=== PATIENT | female | born 1995 | race Hispanic/Latino ===

== ENCOUNTER 2017-08-21 08:40 | Emergency (ER) | payer OTHER ==
[~2017-08-21] VITALS: Ht 163.8 cm; Wt 86.4 kg
[2017-08-21] MEDS ORDERED: NAPR500T3 PO (08:54)
[2017-08-21] MEDS ORDERED: NORCO, ANEXSIA 5/325MG TABLET (HYDROcodone/ACETAMINOPHEN) PO ONE (10:30)
[2017-08-21] MEDS ORDERED: ONDANSETRON 4 MG ORAL DISINTEGRATING TAB (S0181) PO ONE (10:30)
[2017-08-21 10:54] LABS: CONTROL LINE UCG INT CTR LINE PRESENT
[2017-08-21 11:32] LABS: BASO % 0.4 % (0.0-1.0); EOS # 0.1 10^3/uL (0.0-0.50); EOS % 1.3 % (0.0-3.0); IMMATURE GRANULOCYTE % 0.3 % (0-0); LYMPH # 2.3 10^3/uL (1.5-6.5); LYMPH % 22.1 % (24.0-44.0); MEAN CORPUSCULAR HEMOGLOBIN 31.3 pg (27.0-33.0); MEAN CORPUSCULAR HGB CONC 33.8 g/dl (32.0-36.5); MEAN CORPUSCULAR VOLUME 92.7 fl (80.0-96.0); MONO # 0.6 10^3/uL (0.0-0.8); MONO % 5.7 % (0.0-5.0); NEUTROPHILS # 7.4 10^3/uL (1.8-7.7); NEUTROPHILS % 70.2 % (36.0-66.0); PLATELET COUNT, AUTOMATED 371 10^3/uL (150-450); RED CELL DISTRIBUTION WIDTH 12.8 % (11.5-14.5); WHITE BLOOD COUNT 10.5 10^3/uL (4.0-10.0)
[2017-08-21] MEDS ORDERED: NITROFURANTOIN (MACROBID) 100 MG CAP PO ONE (12:30)
[2017-08-21] MEDS ORDERED: MACR100C43 PO (12:32)
[2017-08-21 12:39] VITALS: BP 120/74
--- NOTE | 2017-08-21 15:55 | REP ---
Clinical: Pelvic pain and cramping with positive test. Technique: Transabdominal and transvaginal first trimester obstetrical ultrasound with color Doppler evaluation. Findings: Heterogeneous anteverted uterus measures 9.0 x 4.4 x 5.3 cm. Endometrial complex is thickened to 18 mm, but without intrauterine identified. Maternal ovaries are normal in appearance and vascularity without torsion. Right ovary measures 4.1 x 2.4 x 4.0 cm and includes 2.1 cm corpus luteal cyst; RI 0.50. Left ovary measures 2.8 x 1.8 x 3.2 cm; RI 0.51. No pelvic fluid or adnexal mass lesion. Impression: No intrauterine identified. Differential diagnosis includes early , missed spontaneous , and less likely ectopic cannot be excluded. Follow-up HCG levels and ultrasound may be warranted. Signed by Paramjit Knox MD 08/21/2017 11:27 A
== END 2017-08-21 12:40 | disposition home or self-care (01) ==
LOC: M ED 08:40
DX: O23.01 Infections of kidney in pregnancy, first trimester (principal); Z3A.00 Weeks of gestation of pregnancy not specified; Z87.42 Personal history of other diseases of the female genital tract

== ENCOUNTER → 2017-08-23 | Outpatient (CLI) | payer OTHER ==
[~2017-08-23] MED LIST: MACR100C43 PO; NAPR500T3 PO; TYLE325T5 PO
== END ==
LOC: M LAB 09:19
PROVIDERS: ATTEND Physician Assistant
DX: Z34.80 Encounter for supervision of other normal pregnancy, unspecified trimester (principal)

== ENCOUNTER 2017-08-30 16:12 | Emergency (ER) | payer OTHER ==
[~2017-08-30] VITALS: Ht 162.6 cm; Wt 86.4 kg
[~2017-08-30 16:12] MED LIST changes: -TYLE325T5 PO
[2017-08-30] MEDS ORDERED: TYLE325T5 PO (16:22)
[2017-08-30 17:58] LABS: BASO % 0.3 % (0.0-1.0); EOS # 0.1 10^3/uL (0.0-0.50); IMMATURE GRANULOCYTE % 0.3 % (0-0); LYMPH # 2.1 10^3/uL (1.5-6.5); MEAN CORPUSCULAR HEMOGLOBIN 31.7 pg (27.0-33.0); MEAN CORPUSCULAR HGB CONC 34.3 g/dl (32.0-36.5); MEAN CORPUSCULAR VOLUME 92.5 fl (80.0-96.0); MONO # 0.6 10^3/uL (0.0-0.8); MONO % 6.3 % (0.0-5.0); NEUTROPHILS # 7.1 10^3/uL (1.8-7.7); NEUTROPHILS % 71.1 % (36.0-66.0); PLATELET COUNT, AUTOMATED 440 10^3/uL (150-450); RED CELL DISTRIBUTION WIDTH 13.1 % (11.5-14.5)
[2017-08-30 18:02] LABS: SPECIFIC GRAVITY UR AUTO RFX 1.006 (1.002-1.035); SQUAM EPITHELIAL CELL UR AURFX 1 /HPF (0-6)
[2017-08-30 18:36] LABS: ALBUMIN 4.3 GM/DL (3.2-5.2); ALBUMIN/GLOBULIN RATIO 1.16 (1.00-1.93); ALKALINE PHOSPHATASE 80 U/L (45-117); ALT/SGPT 24 U/L (12-78); ANION GAP 7 MEQ/L (8-16); AST/SGOT 15 U/L (7-37); BILIRUBIN,TOTAL 0.3 MG/DL (0.2-1.0); BLOOD UREA NITROGEN 6 MG/DL (7-18); CALCIUM LEVEL 8.9 MG/DL (8.5-10.1); CARBON DIOXIDE LEVEL 26 MEQ/L (21-32); CHLORIDE LEVEL 106 MEQ/L (98-107); CREATININE FOR GFR 0.64 MG/DL (0.55-1.02); GLOMERULAR FILTRATION RATE > 60.0 (>60); GLUCOSE, FASTING 91 MG/DL (70-105); HCG, SERUM QUANTITATIVE 1920 MIU/ML; POTASSIUM SERUM 3.8 MEQ/L (3.5-5.1); SODIUM LEVEL 139 MEQ/L (136-145)
--- NOTE | 2017-08-30 19:50 | REPUSA ---
CLINICAL HISTORY: . Left-sided pain. TECHNIQUE: Pelvic ultrasound, transabdominal and endovaginal. Endovaginal exam was performed for more complete evaluation of the endometrial contents. COMPARISON: No study for comparison is available at the time of interpretation. Uterus: 8.4 x 4.9 x 4.8 cm. Normal without masses. Endometrial stripe: Early gestational sac with mean sac diameter 5.6 mm without yolk sac or cahim e. Estimated gestational age 5 weeks, 2 days. Left ovary: 3.3 x 2.2 x 1.9 cm, and contains a thickwalled cyst with peripheral blood flow measuring 1.5 x 1.2 x 1.4 cm. Normal ovarian vascular flow. Right ovary: 2.8 x 2.7 x 2.6 cm, and contains a thickwalled cyst measuring 1.9 x 1.9 x 1.6 cm. Normal ovarian vascular flow. Pelvic fluid: None. IMPRESSION: Intrauterine gestational sac at 5 weeks, 2 days, without yolk sac or pole. Recommended close cl inical correlation with serial beta hCG's to establish viability, and follow-up ultrasound if beta hC G's are increasing. Due to the presence of bilateral ovarian cysts, ectopic cannot be excluded. Recommend repea t ultrasound if patient's symptoms persist or worsen.
[2017-08-30 20:09] VITALS: BP 130/86
--- NOTE | 2017-09-04 13:05 | ED PDOC ---
Post-Departure Follow-Up ft fitz evans faxed formal report of ob us for fu Cayden Carmona MD Sep 04, 2017 13:05
== END 2017-08-30 20:10 | disposition home or self-care (01) ==
LOC: M ED 17:17
DX: O26.891 Other specified pregnancy related conditions, first trimester (principal); R10.9 Unspecified abdominal pain; O34.80 Maternal care for other abnormalities of pelvic organs, unspecified trimester; N83.201 Unspecified ovarian cyst, right side; N83.202 Unspecified ovarian cyst, left side; Z3A.01 Less than 8 weeks gestation of pregnancy; Z79.2 Long term (current) use of antibiotics

== ENCOUNTER 2017-09-05 18:10 | Emergency (ER) | payer OTHER ==
[~2017-09-05] VITALS: Ht 165.1 cm; Wt 86.4 kg
[~2017-09-05 18:10] MED LIST changes: +TYLE325T5 PO
[2017-09-05 19:58] LABS: BASO # 0.1 10^3/uL (0.0-0.2); BASO % 0.4 % (0.0-1.0); EOS # 0.2 10^3/uL (0.0-0.50); EOS % 1.3 % (0.0-3.0); IMMATURE GRANULOCYTE % 0.2 % (0-0); LYMPH # 2.9 10^3/uL (1.5-6.5); LYMPH % 21.1 % (24.0-44.0); MEAN CORPUSCULAR HEMOGLOBIN 31.5 pg (27.0-33.0); MEAN CORPUSCULAR HGB CONC 33.8 g/dl (32.0-36.5); MEAN CORPUSCULAR VOLUME 93.3 fl (80.0-96.0); MONO # 0.8 10^3/uL (0.0-0.8); MONO % 6.2 % (0.0-5.0); NEUTROPHILS # 9.6 10^3/uL (1.8-7.7); NEUTROPHILS % 70.8 % (36.0-66.0); PLATELET COUNT, AUTOMATED 425 10^3/uL (150-450); RED CELL DISTRIBUTION WIDTH 13.2 % (11.5-14.5); WHITE BLOOD COUNT 13.5 10^3/uL (4.0-10.0)
[2017-09-05 20:07] LABS: MUCUS, URINE RFX SMALL (NEGATIVE); SQUAM EPITHELIAL CELL UR AURFX 2 /HPF (0-6)
[2017-09-05 20:42] LABS: ANION GAP 8 MEQ/L (8-16); BLOOD UREA NITROGEN 5 MG/DL (7-18); CALCIUM LEVEL 9.2 MG/DL (8.5-10.1); CARBON DIOXIDE LEVEL 26 MEQ/L (21-32); CHLORIDE LEVEL 106 MEQ/L (98-107); CREATININE FOR GFR 0.59 MG/DL (0.55-1.02); GLOMERULAR FILTRATION RATE > 60.0 (>60); GLUCOSE, FASTING 85 MG/DL (70-105); HCG, SERUM QUANTITATIVE 9867 MIU/ML; SODIUM LEVEL 140 MEQ/L (136-145)
--- NOTE | 2017-09-05 21:30 | REPUSA ---
Clinical history: vaginal bleeding. Findings: Real-time transabdominal and transvaginal ultrasound images of the pelvis were obtained. Th ere is a single live intrauterine . [place] rump length measures 0.3 cm. heart rate christian ures 101 bpm. There is no evidence of a subchorionic hemorrhage. An anteverted uterus is noted, measu ring 8.4 x 5.5 x 6.3 cm. The uterus demonstrates normal echotexture and echogenicity. The endometrial stripe measures 3 mm and is within normal limits. The right ovary measures 2.8 x 3.8 x 2.4 cm. There is a complex right ovarian cyst measuring 1.9 x 1.7 x 0.8 cm. The left ovary measures 3.4 x 3.6 x 2. 9 cm. No adnexal masses are seen. Color Doppler flow is seen within both ovaries. There is no evidenc e of free fluid. Impression: 1. Single live intrauterine measuring 6 weeks, with estimated due date of 05/01/2018. 2. Right ovarian corpus luteum cyst.
[2017-09-05] MEDS ORDERED: KEFL500C17 PO ×2 (21:50→22:02)
[2017-09-05] MEDS ORDERED: CEPHALEXIN 500 MG CAP PO ONE (22:00)
[2017-09-05 22:04] VITALS: BP 116/51
== END 2017-09-05 22:06 | disposition home or self-care (01) ==
LOC: M ED 18:10
DX: O23.11 Infections of bladder in pregnancy, first trimester (principal); O26.851 Spotting complicating pregnancy, first trimester; O26.891 Other specified pregnancy related conditions, first trimester; Z3A.01 Less than 8 weeks gestation of pregnancy

== ENCOUNTER 2017-10-17 20:24 | Emergency (ER) | payer OTHER ==
[2017-10-17] MEDS: METOCLOPRAMIDE INJ 10MG/2ML VIAL (J2765) IV (21:00)
[2017-10-17] MEDS: NS 1,000 ML IV ×2 (21:00→22:15)
[2017-10-17 22:05] LABS: BASO % 0.2 % (0.0-1.0); EOS # 0.1 10^3/uL (0.0-0.50); EOS % 0.9 % (0.0-3.0); HEMATOCRIT 37.8 % (36.0-47.0); IMMATURE GRANULOCYTE # 0.1 10^3/uL (0-0); IMMATURE GRANULOCYTE % 0.5 % (0-0); LYMPH % 16.3 % (24.0-44.0); MEAN CORPUSCULAR HEMOGLOBIN 31.3 pg (27.0-33.0); MEAN CORPUSCULAR HGB CONC 34.4 g/dl (32.0-36.5); MEAN CORPUSCULAR VOLUME 91.1 fl (80.0-96.0); MONO # 0.7 10^3/uL (0.0-0.8); NEUTROPHILS # 9.4 10^3/uL (1.8-7.7); NEUTROPHILS % 76.1 % (36.0-66.0); PLATELET COUNT, AUTOMATED 329 10^3/uL (150-450); RED BLOOD COUNT 4.15 10^6/uL (4.00-5.40); RED CELL DISTRIBUTION WIDTH 12.7 % (11.5-14.5); WHITE BLOOD COUNT 12.3 10^3/uL (4.0-10.0)
[2017-10-17] MEDS: diphenhydrAMINE INJ 50MG/ML VIAL (J1200) IV (22:12)
[2017-10-17 22:25] LABS: ANION GAP 10 MEQ/L (8-16); BLOOD UREA NITROGEN 4 MG/DL (7-18); CARBON DIOXIDE LEVEL 25 MEQ/L (21-32); CHLORIDE LEVEL 105 MEQ/L (98-107); CREATININE FOR GFR 0.52 MG/DL (0.55-1.02); GLOMERULAR FILTRATION RATE > 60.0 (>60); GLUCOSE, FASTING 81 MG/DL (70-100); HCG, SERUM QUANTITATIVE 59544 MIU/ML; POTASSIUM SERUM 3.8 MEQ/L (3.5-5.1); SODIUM LEVEL 140 MEQ/L (136-145)
[2017-10-17 23:41] LABS: KETONE, URINE AUTO RFX 2+ mg/dL (NEGATIVE); LEUKOCYTE ESTERASE UR AUTO RFX NEGATIVE (NEGATIVE); MUCUS, URINE RFX SMALL (NEGATIVE); NITRITE, URINE AUTO RFX NEGATIVE (NEGATIVE); RBC, URINE AUTO RFX 3 /HPF (0-3); SPECIFIC GRAVITY UR AUTO RFX 1.019 (1.002-1.035); SQUAM EPITHELIAL CELL UR AURFX 1 /HPF (0-6); WBC, URINE AUTO RFX 3 /HPF (0-3)
== END 2017-10-17 23:56 | disposition home or self-care (01) ==
LOC: M ED 20:24
DX: O21.0 Mild hyperemesis gravidarum (principal); O26.891 Other specified pregnancy related conditions, first trimester; N80.9 Endometriosis, unspecified; Z3A.12 12 weeks gestation of pregnancy
CPT/HCPCS: J1200

== ENCOUNTER 2017-12-06 22:14 | Emergency (ER) | payer OTHER | END 2017-12-07 01:30 | disposition admitted as inpatient to this hospital (09) | LOC: M ED 22:14 | DX: O99.89 Other specified diseases and conditions complicating pregnancy, childbirth and the puerperium (principal); R51 Headache; Z79.899 Other long term (current) drug therapy | CPT/HCPCS: 99281 ==

== ENCOUNTER 2017-12-07 01:25 | Outpatient (CLI) | payer OTHER ==
[2017-12-07] MEDS: FIORICET TAB PO ×2 (02:15)
[2017-12-07] MEDS ORDERED: ACETAMINOPHEN 500 MG TAB PO ×2 (02:15)
[2017-12-07] MEDS ORDERED: LR 1,000 ML IV ×4 (02:15)
[2017-12-07] MEDS ORDERED: METOCLOPRAMIDE INJ 10MG/2ML VIAL (J2765) IV ×2 (02:15)
== END 2017-12-07 04:22 | disposition home or self-care (01) ==
LOC: M LDO 01:25
DX: G43.909 Migraine, unspecified, not intractable, without status migrainosus (principal); R10.2 Pelvic and perineal pain; Z3A.20 20 weeks gestation of pregnancy
CPT/HCPCS: 96360

== ENCOUNTER 2017-12-27 23:48 | Outpatient (CLI) | payer OTHER ==
[2017-12-28 00:48] LABS: APPEARANCE, URINE CLOUDY (CLEAR); BACTERIA, URINE AUTO 1+ (NEGATIVE); BILIRUBIN, URINE AUTO NEGATIVE (NEGATIVE); BLOOD, URINE BLOOD 3+ (NEGATIVE); COLOR, URINE YELLOW (YELLOW); GLUCOSE, URINE (UA) AUTO NEGATIVE (NEGATIVE); KETONE, URINE AUTO NEGATIVE (NEGATIVE); LEUKOCYTE ESTERASE, URINE AUTO 3+ (NEGATIVE); MUCUS, URINE SMALL (NEGATIVE); NITRITE, URINE AUTO NEGATIVE (NEGATIVE); PROTEIN, URINE AUTO 2+ mg/dL (NEGATIVE); RBC, URINE AUTO TNTC /HPF (0-3); SPECIFIC GRAVITY URINE AUTO 1.011 (1.002-1.035); SQUAMOUS EPITHELIAL CELL UR AU 1 /HPF (0-6); UROBILINOGEN, URINE AUTO 0.2 mg/dL (0.0-2.0); WBC, URINE AUTO TNTC /HPF (0-3)
[2017-12-28 02:13] LABS: HEMATOCRIT 32.6 % (36.0-47.0); HEMOGLOBIN 11.2 g/dl (12.0-15.5); MEAN CORPUSCULAR HEMOGLOBIN 32.5 pg (27.0-33.0); MEAN CORPUSCULAR HGB CONC 34.4 g/dl (32.0-36.5); MEAN CORPUSCULAR VOLUME 94.5 fl (80.0-96.0); PLATELET COUNT, AUTOMATED 338 10^3/uL (150-450); RED BLOOD COUNT 3.45 10^6/uL (4.00-5.40); RED CELL DISTRIBUTION WIDTH 13.2 % (11.5-14.5); WHITE BLOOD COUNT 16.8 10^3/uL (4.0-10.0)
[2017-12-28] MEDS: NS 1,000 ML IV ×2 (03:17→11:44)
[2017-12-28] MEDS: ACETAMINOPHEN 500 MG TAB PO ×2 (03:17→09:10)
[2017-12-28] MEDS: CEFTRIAXONE SOD 1 GM in APPROPRIATE DILUENT 1 EA IV ×2 (03:17→15:13)
[2017-12-28] MEDS: PRENATAL VITAMINS CHEWABLE TABLET PO (08:02)
[2017-12-28] MEDS ORDERED: SODIUM CHLORIDE 0.9% 1000 ML IV (09:00)
== END 2017-12-28 16:52 | disposition home or self-care (01) ==
LOC: M LDO 23:48
DX: O99.89 Other specified diseases and conditions complicating pregnancy, childbirth and the puerperium (principal); Z3A.23 23 weeks gestation of pregnancy; O23.42 Unspecified infection of urinary tract in pregnancy, second trimester; R31.9 Hematuria, unspecified
CPT/HCPCS: J0696

== ENCOUNTER 2018-01-08 20:56 | Outpatient (CLI) | payer OTHER ==
[2018-01-08] MEDS: LACTATED RINGER'S 1000 ML IV (21:15)
[2018-01-08] MEDS ORDERED: LR 1,000 ML IV (21:15)
[2018-01-08] MEDS: ONDANSETRON 4MG/2ML VIAL (J2405) IV (21:15)
[2018-01-08 21:33] LABS: HEMATOCRIT 34.9 % (36.0-47.0); HEMOGLOBIN 11.8 g/dl (12.0-15.5); MEAN CORPUSCULAR HGB CONC 33.8 g/dl (32.0-36.5); MEAN CORPUSCULAR VOLUME 94.6 fl (80.0-96.0); PLATELET COUNT, AUTOMATED 413 10^3/uL (150-450); RED BLOOD COUNT 3.69 10^6/uL (4.00-5.40); RED CELL DISTRIBUTION WIDTH 13.2 % (11.5-14.5); WHITE BLOOD COUNT 14.8 10^3/uL (4.0-10.0)
[2018-01-08 22:01] LABS: ALBUMIN 3.5 GM/DL (3.2-5.2); ALBUMIN/GLOBULIN RATIO 0.88 (1.00-1.93); ALKALINE PHOSPHATASE 98 U/L (45-117); ALT/SGPT 30 U/L (12-78); AMYLASE 58 U/L (25-115); ANION GAP 10 MEQ/L (8-16); AST/SGOT 17 U/L (7-37); BILIRUBIN,TOTAL 0.5 MG/DL (0.2-1.0); BLOOD UREA NITROGEN 6 MG/DL (7-18); CALCIUM LEVEL 9.2 MG/DL (8.5-10.1); CARBON DIOXIDE LEVEL 22 MEQ/L (21-32); CHLORIDE LEVEL 107 MEQ/L (98-107); CREATININE FOR GFR 0.57 MG/DL (0.55-1.30); GLOMERULAR FILTRATION RATE > 60.0 (>60); GLUCOSE, FASTING 98 MG/DL (70-100); LIPASE 95 U/L (73-393); SODIUM LEVEL 139 MEQ/L (136-145); TOTAL PROTEIN 7.5 GM/DL (6.4-8.2)
[2018-01-08 23:17] LABS: APPEARANCE, URINE HAZY (CLEAR); BACTERIA, URINE AUTO 1+ (NEGATIVE); BILIRUBIN, URINE AUTO NEGATIVE (NEGATIVE); BLOOD, URINE BLOOD 2+ (NEGATIVE); COLOR, URINE YELLOW (YELLOW); GLUCOSE, URINE (UA) AUTO NEGATIVE (NEGATIVE); KETONE, URINE AUTO 2+ mg/dL (NEGATIVE); LEUKOCYTE ESTERASE, URINE AUTO TRACE (NEGATIVE); MUCUS, URINE SMALL (NEGATIVE); NITRITE, URINE AUTO NEGATIVE (NEGATIVE); PROTEIN, URINE AUTO 1+ mg/dL (NEGATIVE); RBC, URINE AUTO 9 /HPF (0-3); SPECIFIC GRAVITY URINE AUTO 1.024 (1.002-1.035); SQUAMOUS EPITHELIAL CELL UR AU 4 /HPF (0-6); UROBILINOGEN, URINE AUTO 0.2 mg/dL (0.0-2.0); WBC, URINE AUTO 8 /HPF (0-3)
[2018-01-08] MEDS ORDERED: BACTRIM 160MG/800MG DS TAB PO (23:30)
[2018-01-08] MEDS: PROMETHAZINE INJ 25 MG/ML VIAL (J2550) IV (23:57)
[2018-01-09] MEDS: cefTRIAXone SOD 1 GM in D5W MINI-BAG PLUS 50 ML IV (08:29)
[2018-01-09] MEDS: NS 1,000 ML IV (08:29)
== END 2018-01-09 12:39 | disposition home or self-care (01) ==
LOC: M LDO 20:56
DX: O21.9 Vomiting of pregnancy, unspecified (principal); O23.42 Unspecified infection of urinary tract in pregnancy, second trimester; Z3A.24 24 weeks gestation of pregnancy
CPT/HCPCS: J2405

== ENCOUNTER 2018-04-25 15:02 | Inpatient (IN) | payer OTHER ==
[2018-04-25] MEDS: LACTATED RINGER'S 1000 ML IV (17:15)
[2018-04-25] MEDS: LR 1,000 ML IV (18:14)
[2018-04-25] MEDS: OXYTOCIN DRIP 30 UNITS in APPROPRIATE DILUENT 1 EA IV (18:14)
[2018-04-25 18:24] LABS: HEMATOCRIT 33.2 % (36.0-47.0); HEMOGLOBIN 10.8 g/dl (12.0-15.5); MEAN CORPUSCULAR HEMOGLOBIN 27.7 pg (27.0-33.0); MEAN CORPUSCULAR HGB CONC 32.5 g/dl (32.0-36.5); MEAN CORPUSCULAR VOLUME 85.1 fl (80.0-96.0); PLATELET COUNT, AUTOMATED 442 10^3/uL (150-450); RED CELL DISTRIBUTION WIDTH 17.5 % (11.5-14.5); WHITE BLOOD COUNT 10.8 10^3/uL (4.0-10.0)
[2018-04-26] MEDS: LR 1,000 ML IV ×3 (07:46→18:23)
[2018-04-26] MEDS ORDERED: FENTANYL 2MCG/ML ROPIVACAINE 0.2% IN 0.9% NACL 200ML IVBAG As Ordered (17:38)
[2018-04-26] MEDS ORDERED: FENTANYL/ROPIVACAINE/NACL BAG 200 ML EPIDURAL (18:15)
[2018-04-26] MEDS ORDERED: EPIDURAL COMMENT XX (18:15)
[2018-04-26] MEDS ORDERED: NALOXONE INJ 0.4 MG/1 ML VIAL (J2310) IV (18:15)
[2018-04-26] MEDS ORDERED: ePHEDrine SULFATE 25 MG/5 ML(5MG/ML) SYRINGE IV (18:15)
[2018-04-26] MEDS ORDERED: REFRIGERATOR IV KEYS XX (18:15)
[2018-04-26] MEDS ORDERED: diphenhydrAMINE INJ 50MG/ML VIAL (J1200) IV (18:15)
[2018-04-26] MEDS ORDERED: LACTATED RINGER'S 1000 ML IV (18:15)
[2018-04-26] MEDS ORDERED: EPIDURAL/PCA KEYS XX (18:15)
[2018-04-26] MEDS ORDERED: ONDANSETRON 4MG/2ML VIAL (J2405) IV (18:15)
[2018-04-27] MEDS: OXYTOCIN DRIP 30 UNITS in APPROPRIATE DILUENT 1 EA IV (03:26)
[2018-04-27] MEDS ORDERED: MEASLES,MUMPS,RUBELLA VACCINE INJ (MMR-II) (90707) SC (03:30)
[2018-04-27] MEDS: miSOPROStol 200 MCG TAB (S0191) PR (03:30)
[2018-04-27] MEDS ORDERED: RHOGAM 300 MCG (1500 IU) INJ (J2790) IM (03:30)
[2018-04-27] MEDS ORDERED: METOCLOPRAMIDE INJ 10MG/2ML VIAL (J2765) IV (03:30)
[2018-04-27] MEDS: LABETALOL 200 MG TAB PO ×2 (07:00→21:26)
[2018-04-27] MEDS: PRENATAL VITAMINS CHEWABLE TABLET PO (08:04)
[2018-04-27] MEDS: DOCUSATE SODIUM 100 MG CAP PO ×2 (08:04→21:26)
[2018-04-27] MEDS: ACETAMINOPHEN TAB 650MG DOSE (2X325MG) PO ×2 (08:56→21:25)
[2018-04-27] MEDS: DIBUCAINE 1% OINTMENT 30GM TOP (08:59)
[2018-04-27] MEDS: IBUPROFEN 800 MG TAB PO (17:06)
[2018-04-28] MEDS: LABETALOL 200 MG TAB PO ×2 (09:11→21:23)
[2018-04-28] MEDS: DOCUSATE SODIUM 100 MG CAP PO ×2 (09:11→21:24)
[2018-04-28] MEDS: PRENATAL VITAMINS CHEWABLE TABLET PO (09:11)
[2018-04-28] MEDS: IBUPROFEN 800 MG TAB PO ×2 (12:16→21:24)
[2018-04-28] MEDS: ACETAMINOPHEN TAB 650MG DOSE (2X325MG) PO (17:29)
[2018-04-29] MEDS: LABETALOL 200 MG TAB PO (10:09)
[2018-04-29] MEDS: IBUPROFEN 800 MG TAB PO (10:09)
[2018-04-29] MEDS: PRENATAL VITAMINS CHEWABLE TABLET PO (10:09)
[2018-04-29] MEDS: DOCUSATE SODIUM 100 MG CAP PO (10:09)
== END 2018-04-29 11:16 | disposition home or self-care (01) | DRG 775 ==
LOC: M LDI 15:02 → M OBS 04-27 07:12
PROVIDERS: Obstetrics & Gynecology
PROC: 3E033VJ Introduction of Other Hormone into Peripheral Vein, Percutaneous Approach (ICD-10-PCS; 2018-04-25)
PROC: 10E0XZZ Delivery of Products of Conception, External Approach (ICD-10-PCS; principal; 2018-04-27)
PROC: 0UQGXZZ Repair Vagina, External Approach (ICD-10-PCS; 2018-04-27)
DX: O13.4 Gestational [pregnancy-induced] hypertension without significant proteinuria, complicating childbirth (principal); O69.81X0 Labor and delivery complicated by cord around neck, without compression, not applicable or unspecified; O32.6XX0 Maternal care for compound presentation, not applicable or unspecified; O71.4 Obstetric high vaginal laceration alone; Z3A.40 40 weeks gestation of pregnancy; Z37.0 Single live birth

== ENCOUNTER → 2018-08-22 | Outpatient (REF) | payer OTHER | LOC: M LAB REF 16:32 | DX: N39.0 Urinary tract infection, site not specified (principal) | CPT/HCPCS: 87186 ==

== ENCOUNTER → 2019-05-10 | Outpatient (CLI) | payer OTHER ==
[~2019-05-10] MED LIST changes: +BACT800T5 PO; +IBUP-1114 PO; +KEFL500C17 PO; +LABE200T32 PO; +MAPA500T2 PO; +NAPR-885 PO; -NAPR500T3 PO; +NYQU1LIQ PO; +PRENTAB40 PO; +TUMS500C PO; +UNIS25TA3; +VITA50TA43; +ZOFR4TAB16 PO
[2019-05-10 10:03] LABS: BASO # 0.1 10^3/uL (0.0-0.2); BASO % 0.9 % (0.0-1.0); EOS # 0.2 10^3/uL (0.0-0.50); EOS % 2.8 % (0.0-3.0); HEMATOCRIT 40.1 % (36.0-47.0); HEMOGLOBIN 13.4 g/dl (12.0-15.5); LYMPH # 2.2 10^3/uL (1.5-6.5); LYMPH % 32.7 % (24.0-44.0); MEAN CORPUSCULAR HEMOGLOBIN 31.8 pg (27.0-33.0); MEAN CORPUSCULAR HGB CONC 33.4 g/dl (32.0-36.5); MEAN CORPUSCULAR VOLUME 95.2 fl (80.0-96.0); MONO # 0.4 10^3/uL (0.0-0.8); MONO % 5.5 % (0.0-5.0); NEUTROPHILS # 3.9 10^3/uL (1.8-7.7); PLATELET COUNT, AUTOMATED 388 10^3/uL (150-450); RED BLOOD COUNT 4.21 10^6/uL (4.00-5.40); WHITE BLOOD COUNT 6.8 10^3/uL (4.0-10.0)
[2019-05-10 10:31] LABS: HEMOGLOBIN A1c 5.7 %
[2019-05-10 10:33] LABS: ALBUMIN 3.9 GM/DL (3.2-5.2); ALT/SGPT 35 U/L (12-78); BILIRUBIN,TOTAL 0.2 MG/DL (0.2-1.0); BLOOD UREA NITROGEN 7 MG/DL (7-18); CALCIUM LEVEL 8.8 MG/DL (8.5-10.1); CARBON DIOXIDE LEVEL 26 MEQ/L (21-32); CHLORIDE LEVEL 107 MEQ/L (98-107); CHOLESTEROL LEVEL 148 MG/DL (<200); CHOLESTEROL RISK RATIO 3.894 (<5); CREATININE FOR GFR 0.61 MG/DL (0.55-1.30); FREE T4 1.04 NG/DL (0.76-1.46); GLOMERULAR FILTRATION RATE > 60.0 (>60); GLUCOSE, FASTING 101 MG/DL (70-100); HDL CHOLESTEROL 38 MG/DL (>40); LDL CHOLESTEROL 87 MG/DL (<100); NON-HDL-C 110 MG/DL; POTASSIUM SERUM 4.3 MEQ/L (3.5-5.1); SODIUM LEVEL 140 MEQ/L (136-145); THYROID STIMULATING HORMONE 0.548 uIU/ML (0.358-3.740); TOTAL PROTEIN 7.1 GM/DL (6.4-8.2); TRIGLYCERIDES LEVEL 114 MG/DL (<150)
[2019-05-10 10:36] LABS: TOTAL 25(OH) VITAMIN D 12.6 NG/ML (30.0-100.0)
--- NOTE | 2019-05-10 11:31 | REP ---
REASON FOR EXAM: Chronic neck pain. Three limited views were obtained. There is no history of trauma. AP, lateral, and swimmer's view of the cervical spine shows the disc spaces to be symmetric and well-maintained throughout. Vertebral body height and alignment is within normal limits. The facet joints appear to be well-aligned bilaterally. IMPRESSION: Negative limited exam. Electronically Signed by Wu Brito DO 05/10/2019 02:13 P
== END ==
LOC: M LAB 09:30
PROVIDERS: ATTEND Nurse Practitioner Family
DX: M54.2 Cervicalgia (principal)

== ENCOUNTER → 2019-07-02 | Outpatient (REF) | payer OTHER ==
[2019-07-02 20:24] LABS: CHLAMYDIA DNA AMPLIFICATION NEGATIVE (NEGATIVE); GC DNA AMPLIFICATION NEGATIVE (NEGATIVE)
== END ==
LOC: M LAB REF 17:43
PROVIDERS: ATTEND Advanced Practice Midwife
DX: Z11.3 Encounter for screening for infections with a predominantly sexual mode of transmission (principal); R10.2 Pelvic and perineal pain

== ENCOUNTER → 2019-08-14 | Outpatient (CLI) | payer OTHER ==
--- NOTE | 2019-08-14 17:35 | REP ---
PELVIC ULTRASOUND: Real-time sonographic evaluation of the pelvis performed utilizing transabdominal and endovaginal technique. Bladder measures 3.6 x 2.0 x 5.5 cm. Uterus measures 8.0 x 4.7 x 4.6 cm. Endometrial thickness is 7 mm. Right ovary measures 3.5 x 2.1 x 2.4 cm with no torsion with duplex Doppler evaluation. Left ovary measures 3.2 x 2.6 x 4.4 cm with no torsion. Left ovary has a bilobed appearance with a complex cystic structure of the left ovary 2.1 x 1.3 x 2.3 cm probably representing a hemorrhagic dominant follicle. There is no other evidence of adnexal mass or free fluid. IMPRESSION: Complex cystic structure of the left ovary probably represents a complex hemorrhagic dominant follicle 2.3 cm maximally. No other evidence of adnexal mass or free fluid. No torsion. Electronically Signed by Pola Alexandra MD 08/15/2019 11:28 A
== END ==
LOC: M RAD 15:41
PROVIDERS: ATTEND Advanced Practice Midwife
DX: R10.2 Pelvic and perineal pain (principal); N83.202 Unspecified ovarian cyst, left side

== ENCOUNTER → 2019-12-24 | Outpatient (CLI) | payer OTHER | LOC: M LABSMTC 10:43 | PROVIDERS: ATTEND Family Medicine | DX: Z11.59 Encounter for screening for other viral diseases (principal); Z20.828 Contact with and (suspected) exposure to other viral communicable diseases ==

== ENCOUNTER → 2020-01-09 | Outpatient (CLI) | payer OTHER ==
--- NOTE | 2020-01-09 13:59 | REP ---
CHEST, TWO VIEWS: There is no evidence of acute infiltrate. No pleural effusion is seen. The heart is normal in size. The mediastinal silhouette is unremarkable. The visualized osseous structures are intact. IMPRESSION: No acute pulmonary disease. Electronically Signed by Pola Alexandra MD 01/09/2020 02:37 P
== END ==
LOC: M RAD 09:31
PROVIDERS: ATTEND Family Medicine
DX: B34.2 Coronavirus infection, unspecified (principal)

== ENCOUNTER → 2020-02-13 | Outpatient (REF) | payer OTHER ==
[2020-02-13 13:02] LABS: BASO # 0.1 10^3/uL (0.0-0.2); BASO % 0.6 % (0.0-1.0); EOS # 0.2 10^3/uL (0.0-0.5); HEMATOCRIT 38.9 % (36.0-47.0); HEMOGLOBIN 13.3 g/dl (12.0-15.5); LYMPH % 35.3 % (24.0-44.0); MEAN CORPUSCULAR HGB CONC 34.2 g/dl (32.0-36.5); MEAN CORPUSCULAR VOLUME 93.5 fl (80.0-96.0); MONO # 0.5 10^3/uL (0.0-0.8); NEUTROPHILS # 4.8 10^3/uL (1.5-8.5); NEUTROPHILS % 55.9 % (36.0-66.0); PLATELET COUNT, AUTOMATED 475 10^3/uL (150-450); RED BLOOD COUNT 4.16 10^6/uL (4.00-5.40); WHITE BLOOD COUNT 8.6 10^3/uL (4.0-10.0)
[2020-02-13 13:19] LABS: ALBUMIN 4.4 GM/DL (3.2-5.2); ALT/SGPT 55 U/L (12-78); BILIRUBIN,TOTAL 0.5 MG/DL (0.2-1.0); BLOOD UREA NITROGEN 7 MG/DL (7-18); CALCIUM LEVEL 9.3 MG/DL (8.5-10.1); CARBON DIOXIDE LEVEL 27 MEQ/L (21-32); CHLORIDE LEVEL 106 MEQ/L (98-107); CHOLESTEROL LEVEL 142 MG/DL (<200); CHOLESTEROL RISK RATIO 3.021 (<5); CREATININE FOR GFR 0.67 MG/DL (0.55-1.30); GLOMERULAR FILTRATION RATE > 60.0 (>60); GLUCOSE, FASTING 87 MG/DL (70-100); HDL CHOLESTEROL 47 MG/DL (>40); LDL CHOLESTEROL 82 MG/DL (<100); NON-HDL-C 95 MG/DL; POTASSIUM SERUM 3.8 MEQ/L (3.5-5.1); SODIUM LEVEL 141 MEQ/L (136-145); TOTAL 25(OH) VITAMIN D 12.2 NG/ML (30.0-100.0); TRIGLYCERIDES LEVEL 66 MG/DL (<150)
[2020-02-13 13:41] LABS: HEMOGLOBIN A1c 5.8 %
== END ==
LOC: M LAB REF 12:34
PROVIDERS: ATTEND Family Medicine
DX: Z00.01 Encounter for general adult medical examination with abnormal findings (principal)